=== PATIENT | female | born 1995 | race Caucasian/White ===

== ENCOUNTER → 2016-08-08 | Outpatient (CLI) | payer OTHER ==
--- NOTE | 2016-08-08 12:51 | DI ---
Indication: ITS.[email or web address]: DX TESTING PROCEDURE: THORACIC SPINE 2 VIEW: Encounter: Initial Comparison: None Findings: Bilateral cervical ribs are noted incidentally. Alignment of the thoracic spine is within normal limits. No acute fracture or subluxation. The vertebral body heights and disk spaces are maintained. Impression: Normal appearance of the thoracic spine. Bilateral cervical ribs. .
--- NOTE | 2016-08-08 14:01 | DI ---
Indication: ITS.[email or web address]: DX TESTING PROCEDURE: LUMBAR SPINE 2-3 VIEWS: Encounter: Initial Comparison: None Findings: Mild levoscoliosis. No acute fracture or subluxation. The vertebral body heights and disk spaces are normal. Intrauterine device noted projecting over the pelvis. Impression: Mild scoliosis. .
== END ==
LOC: IMA 11:45
DX: Z02.89 Encounter for other administrative examinations (principal)